=== PATIENT | female | born 1995 | race African-American/Black ===

== ENCOUNTER 2020-05-26 22:31 | Emergency (ER) | payer OTHER ==
[2020-05-26 23:11] LABS: ALT (SGPT) 261 U/L (8-55); AST (SGOT) 82 U/L (5-34); Acetaminophen Less than 6.0 mcg/mL (10.0-30.0); Albumin 4.3 g/dL (3.5-5.0); Alcohol Less than 10 mg/dL (Less than 10); Alkaline Phosphatase 102 U/L (40-110); Anion Gap 20 mmol/L (10-20); BUN (Urea Nitrogen) 10 mg/dL (7.0-18.7); Bilirubin, Total 0.5 mg/dL (0.2-1.2); Calc. Creatinine Clearance 0 mL/min (70-130); Calcium 8.9 mg/dL (7.8-10.44); Carbon Dioxide 21 mmol/L (22-29); Chloride 103 mmol/L (98-107); Estimated GFR-MDRD Greater than 90; Globulin 3.5 g/dL (2.4-3.5); Glucose 107 mg/dL (70-105); Protein, Total 7.8 g/dL (6.0-8.3); Salicylate Less than 8.0 mg/dL (15.0-30.0); Sodium 140 mmol/L (136-145)
[2020-05-26 23:18] LABS: Bilirubin Small (Negative); Blood, Urine Negative (Negative); Clarity Clear (Clear); Glucose, Urine (Dipstick) Negative (Negative); Ketone, Urine 40 mg/dL (Negative); Leukocyte Negative (Negative); Nitrite Negative (Negative); Protein, Urine (Dipstick) 30 mg/dL (Neg-Trace); pH, Urine 6.5 (5.0-9.0)
[2020-05-26 23:31] LABS: Specific Gravity, Urine 1.026 (1.002-1.036)
[2020-05-26 23:33] LABS: RBC/HPF 0-3 HPF (0-3); WBC/HPF 0-3 HPF (0-3)
[2020-05-26 23:36] LABS: Bacteria/HPF Rare-Few HPF (None Seen); Mucous/LPF 2+ LPF (<2+)
[2020-05-26 23:40] LABS: Amphetamine Not Detected (NotDetected); Barbiturates Screen Not Detected (NotDetected); Benzodiazepine Screen Not Detected (NotDetected); Cocaine Metabolite Screen Not Detected (NotDetected); Medtox Control Line Valid? VALID (VALID); Methadone Not Detected (NotDetected); Methamphetamine Not Detected (NotDetected); Opiate Screen Not Detected (NotDetected); Oxycodone Screen Not Detected (NotDetected); Phencyclidine (PCP) Not Detected (NotDetected); THC/Cannabinoid Screen Detected (NotDetected); Tricyclic Screen Not Detected (NotDetected)
[2020-05-26 23:42] LABS: BHCG - Serum Negative (NEGATIVE); Pregs Control Background? CLEAR/WHITE (CLR/WHITE); Pregs Control Bar Appear? YES (CONTROL BAR)
--- NOTE | 2020-05-26 23:51 | CT ---
CT of thehead: 05/26/2020 COMPARISON:None available HISTORY:Trauma TECHNIQUE: Serial axial CT imaging at5 mm intervals from thevertex through skull base without contras t. Coronal and sagittal reformatted imaging obtained Findings:The imaged paranasal sinuses and mastoid air cells are well-aerated. No displaced calvarial fracture, intracranial hemorrhage, midline shift, or mass effect. Impression:No acute findings.
--- NOTE | 2020-05-26 23:54 | CT ---
Cervical spine CT without contrast: 05/26/2020 COMPARISON: None HISTORY: Trauma, altered mental status TECHNIQUE: Axial CT imaging at 2.5 mm intervals through the cervical spine with coronal and sagittal reformatted imaging FINDINGS: The visualized lung apices are unremarkable. The occipital condyles, the dens, the C1-2 art iculation, the craniocervical junction, the atlantoaxial interspace, and the cervicothoracic junction unremarkable. No anterolisthesis or retrolisthesis. No prevertebral soft tissue swelling, fr acture, or dislocation. IMPRESSION: Unremarkable cervical spine CT.
[2020-05-26 23:56] LABS: Hemoglobin 13.9 g/dL (12.0-16.0); Red Blood Cell (RBC) Count 4.71 mill/uL (4.20-5.40); White Blood Cell (WBC) Count 2.5 thou/uL (4.8-10.8)
[2020-05-26 23:57] LABS: Manual Diff?? YES; Mean Corpuscular HGB CONC 31.8 g/dL (32.0-36.0); Mean Corpuscular Hemoglobin 29.5 pg (27.0-31.0); Mean Corpuscular Volume 92.5 fL (78.0-98.0); Mean Platelet Volume 6.9 fL (7.4-10.4); Platelet Count 267 thou/uL (130-400); RBC Distribution Width 11.1 % (11.5-14.5)
[2020-05-27 00:01] LABS: MDiff Complete? YES
[2020-05-27 00:03] LABS: Band 7 % (5-11); Eosinophils 1 % (0-10); Lymphocytes 32 % (21-51); Monocytes 4 % (0-10); Neutrophil 43 % (42-75); Reactive Lymphocytes 13 % (0-10)
== END 2020-05-27 09:09 ==
LOC: MADERS 22:31
DX: F23 Brief psychotic disorder (principal); R74.01 Elevation of levels of liver transaminase levels; F12.10 Cannabis abuse, uncomplicated; F17.210 Nicotine dependence, cigarettes, uncomplicated; F41.9 Anxiety disorder, unspecified; F31.9 Bipolar disorder, unspecified; Z79.899 Other long term (current) drug therapy; V49.9XXA Car occupant (driver) (passenger) injured in unspecified traffic accident, initial encounter
CPT/HCPCS: 70450; 72125; 80053; 80306; 80307; 81003; 81015; 82550; 84443; 84703; 85025